=== PATIENT | male | born 1940 | race Caucasian/White ===

== ENCOUNTER 2020-07-21 22:14 | Emergency (ER) | payer MEDICARE, OTHER ==
[~2020-07-21 22:14] MED LIST: ASPIRIN81 MG PO; ATENOLOL50 MG PO; ATORVASTATIN CA20 MG PO; B COMPLEX1 EACH PO; BRILINTA 90 MG90 MG PO; CLARITIN10 MG PO; CO Q-10100 MG PO; COZAAR100 MG PO; DIOVAN320 MG PO; ELIQUIS5 MG PO; HYDROCHLOROTHIA25 MG PO; LIPITOR TAB 1010 MG PO; LOPRESSOR 25 MG25 MG PO; NAPROXEN500 MG PO; NORVASC 5 MG TAB5 MG PO; NORVASC5 MG PO; PERCOCET 5-3251 EACH PO; PROSTATE THERA1 EACH PO; TYLENOL 500 MG500 MG PO
[2020-07-21 23:27] LABS: RED BLOOD COUNT 4.77 M/UL (4.20-5.50); WHITE BLOOD COUNT 11.7 K/UL (4.5-11.0)
== END 2020-07-22 03:44 | disposition home or self-care (01) ==
LOC: ER1 22:14
PROVIDERS: Emergency Medicine
DX: U07.1 COVID-19 (principal); I10 Essential (primary) hypertension; I25.10 Atherosclerotic heart disease of native coronary artery without angina pectoris; Z85.51 Personal history of malignant neoplasm of bladder; Z87.891 Personal history of nicotine dependence
CPT/HCPCS: 36600; 71045; 80053; 82550; 82553; 82803; 83874; 83880; 84484; 85025; 93005; 99285; M0239